=== PATIENT | male | born 1935 | race Caucasian/White ===

== ENCOUNTER 2025-07-05 11:30 | Outpatient (RCR) | payer MEDICARE, SELFPAY | END 2025-07-05 16:53 | disposition home or self-care (01) | LOC: HO.WCC 11:30 | PROVIDERS: PCP Internal Medicine; Visit Provider Surgery Surgical Oncology | DX: I87.321 Chronic venous hypertension (idiopathic) with inflammation of right lower extremity (principal); I73.9 Peripheral vascular disease, unspecified; Z96.653 Presence of artificial knee joint, bilateral; Z79.899 Other long term (current) drug therapy | CPT/HCPCS: 11042; 29580; 87070; 87073; 87147; 87205; 97597; 99212; 99213 ==